=== PATIENT | male | born 2000 | race Caucasian/White ===

== ENCOUNTER 2023-01-01 13:27 | Emergency (ER) | payer OTHER ==
[~2023-01-01] VITALS: Ht 157.5 cm; Wt 53.5 kg
[2023-01-01 14:21] VITALS: BP_SYST 118
--- NOTE | 2023-01-01 14:24 | NUR ---
Patient to ER bed 01 to gown for evaluation. Side rails up.
[2023-01-01] MEDS ORDERED: LORazepam 2 MG/ML VIAL IVP ONE (14:45)
[2023-01-01] MEDS ORDERED: ONDANSETRON HCL 4 MG/2 ML VIAL IVP ONE (14:45)
[2023-01-01] MEDS ORDERED: levETIRAcetam 1,000 MG IV BAG 100 ML IV ONE (14:45)
[2023-01-01 14:51] LABS: BASOPHILS % (AUTO) 0.1 % (0.0-2.0); EOSINOPHILS % (AUTO) 0.1 % (0.0-4.0); HEMATOCRIT 43.4 % (36-48); HEMOGLOBIN 14.7 g/dL (12.0-16.0); LYMPHOCYTES # (AUTO) 0.5 K/uL (1.0-5.5); MEAN CORPUSCULAR HEMOGLOBIN 31 pg (27-31); MEAN CORPUSCULAR HGB CONC 34 % (32-36); MEAN CORPUSCULAR VOLUME 92 fL (79.0-98.0); MONOCYTES # (AUTO) 0.9 K/uL (0.0-1.0); MONOCYTES % (AUTO) 5.9 % (1.7-9.3); NEUTROPHILS % (AUTO) 90.9 % (40.0-70.0); PLATELET COUNT (AUTO) 231 K/uL (130-430); RED BLOOD CELL COUNT(AUTO) 4.75 MIL/uL (4.2-6.2); RED CELL DISTRIBUTION WIDTH 12.9 % (9.0-15.0); WHITE BLOOD COUNT (AUTO) 15.3 K/uL (4.8-10.8)
[2023-01-01 15:07] LABS: CALCIUM 9.6 mg/dL (8.4-11.0); CREATININE 1.2 mg/dL (0.55-1.30)
[2023-01-01 15:11] LABS: ALBUMIN 5.1 g/dL (3.4-4.8); TOTAL BILIRUBIN 0.6 mg/dL (0.0-1.0)
--- NOTE | 2023-01-01 15:26 | NUR ---
PT COMES HERE S/P SEIZURE, ADMITS TO BEING NON COMPLIANT WITH MEDS. PT IS AAOX4, IN NAD. RESP EVEN AND UNLABORED, ON RA @98%. SEIZURE PRECAUTIONS IN PLACE. WILL CONT TO MONITOR.
--- NOTE | 2023-01-01 16:06 | NUR ---
NO SEIZURE ACTIVITY WHILE IN ER. PT STABLE, VSS.
--- NOTE | 2023-01-01 16:32 | NUR ---
Patient given written and verbal discharge instructions and verbalizes understanding. ER MD discussed with patient the results and treatment provided. Patient in stable condition. ID arm band removed. IV catheter removed intact and dressing applied, no active bleeding. Patient educated on pain management and to follow up with PMD. Pain Scale . Opportunity for questions provided and answered. Medication side effect fact sheet provided.
[2023-01-01 16:34] VITALS: BP_SYST 122
== END 2023-01-01 16:32 | disposition home or self-care (01) ==
LOC: EDSEX 13:27 → SED 13:27
DX: G40.909 Epilepsy, unspecified, not intractable, without status epilepticus (principal); Z91.14 Patient's other noncompliance with medication regimen; Z79.899 Other long term (current) drug therapy
CPT/HCPCS: 99284; 96365; 96375; 80053; 83735; 85025; 36415; 93005; J1953; J2060; J2405